=== PATIENT | male | born 1960 ===

== ENCOUNTER 2022-03-23 18:20 | Inpatient (IN) | payer MEDICAID ==
[~2022-03-23] VITALS: Ht 172.7 cm; Wt 97.1 kg
[2022-03-23] MEDS ORDERED: temazepam 15mg capsule PO PRN (21:00)
[2022-03-23] MEDS ORDERED: INDO50CA96 PO (21:50)
[2022-03-23 22:14] VITALS: BP 112/49
[2022-03-23] MEDS ORDERED: HYDROcodone/acetaminophen 5mg/325mg tablet PO PRN (22:40)
[2022-03-23] MEDS ORDERED: potassium Cl 40MEQ/1/2NS 520ml 520 ML IV PRN (22:40)
[2022-03-23] MEDS ORDERED: magnesium Cl slow-release 64mg tablet PO PRN (22:40)
[2022-03-23] MEDS ORDERED: ondansetron/PF 4mg/2ml inj IV PRN (22:40)
[2022-03-23] MEDS ORDERED: magnesium 4gm in 100ml NS 100 ML IV PRN (22:40)
[2022-03-23] MEDS ORDERED: potassium Cl 20 mEq SR tablet PO PRN ×2 (22:40)
[2022-03-23] MEDS ORDERED: acetaminophen 325mg tablet PO PRN ×2 (22:40)
[2022-03-23] MEDS ORDERED: dextrose 50%-water 50ml dispensing syringe IV PRN ×2 (23:00)
[2022-03-23] MEDS ORDERED: MESSAGE TO PHARMACY PO ONE (23:00)
[2022-03-23] MEDS ORDERED: DEXTROSE 15 GM of carb/4 tabs (each vial/BOTTLE has 4 tablets) PO PRN ×2 (23:00)
[2022-03-23] MEDS ORDERED: glucagon, human recombinant 1mg kit SUBCUT PRN (23:00)
[2022-03-23] MEDS ORDERED: vancomycin/NS 1 GM ADD-VANTAGE 250 ML X 1 DOSE IV ONE (23:30)
[2022-03-24] VITALS (30 sets, daily range): BP systolic 128–179; BP diastolic 73–98
[2022-03-24] MEDS: HYDROcodone/acetaminophen 10/325mg tab PO PRN ×3 (00:18→08:02)
[2022-03-24] MEDS: normal saline 1000ml 1,000 ML IV SCH ×3 (00:18→21:49)
[2022-03-24] MEDS: cefepime 1GM/NS ADD-VANTAGE 100 ML IV SCH ×3 (00:18→16:00)
[2022-03-24 05:44] LABS: BASOPHILS % (AUTO) 0.3 % (0-1); EOSINOPHILS # (AUTO) 0.1 X10'3 (0-0.9); EOSINOPHILS % (AUTO) 0.7 % (0-6); HEMATOCRIT 43.1 % (42.0-52.0); HEMOGLOBIN 14.6 g/dl (14.0-17.9); LYMPHOCYTES % (AUTO) 7.9 % (21-51); MEAN CORPUSCULAR HEMOGLOBIN 32.9 PG (27.0-31.0); MEAN CORPUSCULAR HGB CONC 33.8 g/dL (33.0-36.5); MEAN CORPUSCULAR VOLUME 97.3 FL (78-98); MONOCYTES # (AUTO) 1.2 X10'3 (0-0.9); MONOCYTES % (AUTO) 9.4 % (2-12); NEUTROPHILS # (AUTO) 10.2 X10'3 (1.8-7.7); NEUTROPHILS % (AUTO) 81.7 % (42-75); PLATELET COUNT 319 X10'3 (140-440); RED BLOOD COUNT 4.43 X10'6 (4.70-6.10); RED CELL DISTRIBUTION WIDTH 12.7 % (11.5-14.5); WHITE BLOOD COUNT 12.5 X10'3 (4.5-11.0)
[2022-03-24 05:50] LABS: ALANINE AMINOTRANSFERASE 54 U/L (12-78); ALBUMIN 2.1 G/DL (3.4-5.0); ALBUMIN/GLOBULIN RATIO 0.4 (1.1-1.5); ALKALINE PHOSPHATASE 177 IU/L (46-116); ANION GAP 12 (8-16); ASPARTATE AMINO TRANSFERASE 49 U/L (10-37); BILIRUBIN,TOTAL 0.6 MG/DL (0.1-1.0); BLOOD UREA NITROGEN 17 MG/DL (7-18); BUN/CREATININE RATIO 17.5 (5.4-32.0); CALCIUM 8.9 MG/DL (8.5-10.1); CHLORIDE 93 MMOL/L (99-107); CREATININE 0.97 MG/DL (0.60-1.10); GLUCOSE 155 MG/DL (70-104); SODIUM 129 MMOL/L (135-145); TOTAL CARBON DIOXIDE 24.5 MMOL/L (24-32); TOTAL PROTEIN 6.8 G/DL (6.4-8.2); eGFR 78 ML/MIN
[2022-03-24] MEDS: heparin, porcine 5000 units/ml vial SQ SCH ×2 (07:49→21:49)
--- NOTE | 2022-03-24 09:01 | NUR ---
Diabetes consult: Pt w/ hx of DM A1c 9 per EMR. Provided pt w/ written and verbal DM ed w/ RD contact info Addendum: 03/24/22 at [address] Amended: Links added.
[2022-03-24] MEDS: HYDROmorphone 2mg tablet PO PRN ×2 (10:39→21:50)
[2022-03-24] MEDS: vancomycin/NS 1 GM ADD-VANTAGE 250 ML IV SCH (12:54)
[2022-03-24] MEDS ORDERED: BUPIVAcaine 0.5% inj/PF 0 ML ONE (15:11)
[2022-03-24] MEDS ORDERED: vancomycin 1,000mg inj ONE ×2 (15:11→15:57)
[2022-03-24 15:17] LABS: APTT 29 SECONDS (22-32)
[2022-03-24] MEDS ORDERED: morphine 2 MG/ML inj. syringe IV PRN (15:30)
[2022-03-24] MEDS ORDERED: proCHLORperazine 10 MG/2 ml inj IV PRN (15:30)
[2022-03-24] MEDS ORDERED: meperidine/PF 25mg/ml syringe IV PRN ×2 (15:30)
[2022-03-24] MEDS ORDERED: ringers solution, lacted 1,000 ML IV SCH (15:30)
[2022-03-24] MEDS ORDERED: ondansetron/PF 4mg/2ml inj IV PRN (15:30)
[2022-03-24] MEDS ORDERED: morphine 4 MG/ML inj SYRINge IV PRN (15:30)
[2022-03-24] MEDS ORDERED: sevoflurane 250ml liquid IH ONE (15:36)
--- NOTE | 2022-03-24 15:39 | NUR ---
TAKEN TO OR, REPORT GIVEN
[2022-03-24] MEDS ORDERED: fentaNYL /PF 50mcg/ml 5ml ampule ONE (15:40)
[2022-03-24] MEDS ORDERED: propofol inj 20 ML IV ONE (15:41)
--- NOTE | 2022-03-24 16:21 | NUR ---
Received from OR via HOSPITAL BED, accompanied by Anesthesiologist DR NGUYEN and report given by Anesthesiolgist. PT PRESENTS WITH PIV 20G LEFT FOREARM, RIGHT HAND DRESSING CDI, VSS. Addendum: 03/24/22 at 1658 by Angela Graham RN, RN Amended: Links added.
[2022-03-24] MEDS: meperidine/PF 25mg/ml syringe IV PRN ×3 (16:29→18:24)
[2022-03-24] MEDS ORDERED: HYDROmorphone/PF 0.2 MG/ML SYRINGE IV PRN (16:50)
[2022-03-24] MEDS: HYDROmorphone/PF 0.2 MG/ML SYRINGE IV PRN ×5 (16:58→17:59)
--- NOTE | 2022-03-24 17:15 | NUR ---
PT CO PAIN 8/10 ON RIGHT WRIST, 3 PIILOWS PLACED UNDER PT WRIST WITH ICE PACKS PLACED ON LATERAL AND MEDIAL WRIST.
--- NOTE | 2022-03-24 19:01 | NUR ---
Report called to receiving nurse GALO HUITRON. Transferred via HOSITAL BED TO ROOM 360B. BED IN LOW LOCKED POSITION, CALL LIGHT IN REACH. PT LEFT Belongings IN ROOM 360B. PT'S CHART TAKEN TO NURSES STATION. Special Issues communicated to receiving nurse. Addendum: 03/24/22 at 1914 by Angela Graham RN RN Amended: Links added.
--- NOTE | 2022-03-24 19:34 | NUR ---
Patient in room [facility]. I have received report from karen avitia and had the opportunity to ask questions and assume patient care.
[2022-03-24] MEDS: insulin glargine (Lantus) pen - multi-dose SQ SCH (21:00)
[2022-03-25] MEDS: cefepime 1GM/NS ADD-VANTAGE 100 ML IV SCH ×3 (00:06→16:12)
[2022-03-25] MEDS: HYDROcodone/acetaminophen 10/325mg tab PO PRN ×3 (00:22→22:10)
--- NOTE | 2022-03-25 00:52 | NUR ---
pt elevated BP is pain related and it is being controlled with pain meds. it is high and then goes down with pain meds being administered. i discussed with charge nurse, she is aware, and she advised we pass this on to the day nurse to address this in the AM with dr kamara. we are just trying to keep up on his pain meds appropriately. pt does not have a hospitalist just surgeon.
[2022-03-25] MEDS: vancomycin/NS 1 GM ADD-VANTAGE 250 ML IV SCH ×2 (01:05→12:17)
--- NOTE | 2022-03-25 02:54 | NUR ---
Problems reprioritized. Patient report given, questions answered & plan of care reviewed with mirella avitia.
[2022-03-25] MEDS: normal saline 1000ml 1,000 ML IV SCH ×2 (04:40→12:14)
[2022-03-25 06:00] VITALS: BP 196/96
--- NOTE | 2022-03-25 06:56 | NUR ---
Assumed care of patient at 0300. Have check on patient multiple times always sleeping appears comfortable.
[2022-03-25 07:03] LABS: BASOPHILS % (AUTO) 0.4 % (0-1); EOSINOPHILS # (AUTO) 0.1 X10'3 (0-0.9); EOSINOPHILS % (AUTO) 0.8 % (0-6); HEMATOCRIT 42.1 % (42.0-52.0); LYMPHOCYTES # (AUTO) 0.9 X10'3 (1.1-4.8); LYMPHOCYTES % (AUTO) 7.6 % (21-51); MEAN CORPUSCULAR HEMOGLOBIN 32.5 PG (27.0-31.0); MEAN CORPUSCULAR HGB CONC 33.3 g/dL (33.0-36.5); MEAN CORPUSCULAR VOLUME 97.6 FL (78-98); MEAN PLATELET VOLUME 7.6 FL (7.4-10.4); MONOCYTES # (AUTO) 1.1 X10'3 (0-0.9); MONOCYTES % (AUTO) 9.1 % (2-12); NEUTROPHILS % (AUTO) 82.1 % (42-75); PLATELET COUNT 349 X10'3 (140-440); RED BLOOD COUNT 4.32 X10'6 (4.70-6.10); RED CELL DISTRIBUTION WIDTH 12.7 % (11.5-14.5); WHITE BLOOD COUNT 12.2 X10'3 (4.5-11.0)
--- NOTE | 2022-03-25 07:24 | NUR ---
Had patient yesterday prior to I&D, Rhina SOARES assumed care of patient at 0300. I am assigned to patient today. Rhina SOARES left with no report given to me. Addendum: 03/25/22 at 0732 by Juice Chavez RN received 0600 VS sheet, BP charted as 196/96, will recheck and treat appropriately. no communication with prior nurse re blood pressures as report was given.
[2022-03-25 07:26] LABS: ANION GAP 9 (8-16); BILIRUBIN,TOTAL 0.5 MG/DL (0.1-1.0); BLOOD UREA NITROGEN 16 MG/DL (7-18); BUN/CREATININE RATIO 19.8 (5.4-32.0); CALCIUM 9.1 MG/DL (8.5-10.1); CHLORIDE 97 MMOL/L (99-107); CREATININE 0.81 MG/DL (0.60-1.10); GLUCOSE 143 MG/DL (70-104); SODIUM 132 MMOL/L (135-145); TOTAL CARBON DIOXIDE 25.7 MMOL/L (24-32); TOTAL PROTEIN 6.6 G/DL (6.4-8.2); eGFR > 90 ML/MIN
[2022-03-25 07:27] LABS: ALANINE AMINOTRANSFERASE 51 U/L (12-78); ALBUMIN 2.1 G/DL (3.4-5.0); ALBUMIN/GLOBULIN RATIO 0.5 (1.1-1.5); ALKALINE PHOSPHATASE 174 IU/L (46-116); ASPARTATE AMINO TRANSFERASE 45 U/L (10-37)
[2022-03-25 07:53] VITALS: BP 176/101
--- NOTE | 2022-03-25 07:58 | NUR ---
promotional table spacer promotional table spacer Page Sent promotional table spacer PAGER ID: [phone] MESSAGE: re Austintorri Arnoldo Rm 360B BP was 196/96 hr 82 @0600. Reassessed, currently 176/101 hr 83. no BP meds ordered. please advise Asad HUITRON
[2022-03-25] MEDS: heparin, porcine 5000 units/ml vial SQ SCH ×2 (08:14→22:13)
[2022-03-25] MEDS: HYDROmorphone 2mg tablet PO PRN ×2 (08:14→16:12)
[2022-03-25 08:54] LABS: C-REACTIVE PROTEIN 23.51 MG/DL (0.0-0.5)
[2022-03-25 10:00] VITALS: BP 175/87
[2022-03-25] MEDS: hydrALAZINE 20mg/ml inj. IV PRN (11:13)
[2022-03-25] MEDS ORDERED: VANCOMYCIN LEVEL IV ONE (11:30)
[2022-03-25 18:00] VITALS: BP 155/84
--- NOTE | 2022-03-25 18:33 | NUR ---
Patient in room [facility]. I have received report from Asad HUITRON and had the opportunity to ask questions and assume patient care.
[2022-03-25] MEDS: insulin glargine (Lantus) pen - multi-dose SQ SCH (21:00)
[2022-03-25 22:00] VITALS: BP 193/97
[2022-03-26] MEDS: normal saline 1000ml 1,000 ML IV SCH ×3 (00:32→20:37)
[2022-03-26] MEDS: cefepime 1GM/NS ADD-VANTAGE 100 ML IV SCH ×3 (00:34→16:25)
[2022-03-26] MEDS: VANCOmycin 1250MG/NS 250ml Bag 250 ML IV SCH ×3 (02:48→23:47)
[2022-03-26] MEDS: HYDROcodone/acetaminophen 10/325mg tab PO PRN ×4 (02:55→20:37)
[2022-03-26 06:00] VITALS: BP 161/87
--- NOTE | 2022-03-26 06:51 | NUR ---
Patient in room [facility]. I have received report from Candi and had the opportunity to ask questions and assume patient care.
--- NOTE | 2022-03-26 06:55 | NUR ---
Problems reprioritized. Patient report given, questions answered & plan of care reviewed with Denisa HUITRON.
[2022-03-26 07:14] LABS: BASOPHILS # (AUTO) 0.1 X10'3 (0-0.2); BASOPHILS % (AUTO) 0.6 % (0-1); EOSINOPHILS # (AUTO) 0.3 X10'3 (0-0.9); EOSINOPHILS % (AUTO) 2.4 % (0-6); HEMATOCRIT 40.7 % (42.0-52.0); HEMOGLOBIN 14.1 g/dl (14.0-17.9); LYMPHOCYTES # (AUTO) 1.2 X10'3 (1.1-4.8); LYMPHOCYTES % (AUTO) 11.3 % (21-51); MEAN CORPUSCULAR HEMOGLOBIN 33.5 PG (27.0-31.0); MEAN CORPUSCULAR HGB CONC 34.5 g/dL (33.0-36.5); MEAN CORPUSCULAR VOLUME 97.1 FL (78-98); MEAN PLATELET VOLUME 7.5 FL (7.4-10.4); MONOCYTES # (AUTO) 0.8 X10'3 (0-0.9); MONOCYTES % (AUTO) 7.5 % (2-12); NEUTROPHILS # (AUTO) 8.2 X10'3 (1.8-7.7); NEUTROPHILS % (AUTO) 78.2 % (42-75); PLATELET COUNT 365 X10'3 (140-440); RED CELL DISTRIBUTION WIDTH 12.7 % (11.5-14.5); WHITE BLOOD COUNT 10.5 X10'3 (4.5-11.0)
[2022-03-26 07:30] LABS: PLATELET ESTIMATE NORMAL; TOTAL CELLS COUNTED 100
[2022-03-26 07:31] LABS: ALANINE AMINOTRANSFERASE 65 U/L (12-78); ALBUMIN 1.9 G/DL (3.4-5.0); ALBUMIN/GLOBULIN RATIO 0.5 (1.1-1.5); ALKALINE PHOSPHATASE 155 IU/L (46-116); ANION GAP 6 (8-16); ASPARTATE AMINO TRANSFERASE 47 U/L (10-37); BILIRUBIN,TOTAL 0.4 MG/DL (0.1-1.0); BLOOD UREA NITROGEN 13 MG/DL (7-18); BUN/CREATININE RATIO 17.6 (5.4-32.0); C-REACTIVE PROTEIN 16.72 MG/DL (0.0-0.5); CALCIUM 8.6 MG/DL (8.5-10.1); CHLORIDE 100 MMOL/L (99-107); CREATININE 0.74 MG/DL (0.60-1.10); GLUCOSE 138 MG/DL (70-104); POTASSIUM 3.7 MMOL/L (3.5-5.1); SODIUM 133 MMOL/L (135-145); TOTAL CARBON DIOXIDE 26.6 MMOL/L (24-32); TOTAL PROTEIN 6.1 G/DL (6.4-8.2); eGFR > 90 ML/MIN
[2022-03-26] MEDS: heparin, porcine 5000 units/ml vial SQ SCH ×2 (09:19→20:36)
[2022-03-26] MEDS: nicotine 21mg patch - 24 hr TD SCH (09:19)
[2022-03-26 10:00] VITALS: BP 190/85
--- NOTE | 2022-03-26 15:24 | NUR ---
PAGER ID: [phone] MESSAGE: Ruthie Mclaughlin in 360B is c/o pain in his left ankle that is getting increasingly worse. Red and edema starting. Says its feels like gout flare up. -Breanne [phone]
[2022-03-26] MEDS: hydrALAZINE 20mg/ml inj. IV PRN (16:30)
[2022-03-26] MEDS: indomethacin 25mg capsule PO SCH (17:26)
--- NOTE | 2022-03-26 17:39 | NUR ---
Pt's POA is daughter Sharonda Mclaughlin.
[2022-03-26 18:00] VITALS: BP 172/96
--- NOTE | 2022-03-26 18:15 | NUR ---
Problems reprioritized. Patient report given, questions answered & plan of care reviewed with TOMY Raymundo.
--- NOTE | 2022-03-26 18:15 | NUR ---
Problems reprioritized. Patient report given, questions answered & plan of care reviewed with Bindu.
[2022-03-26] MEDS: insulin glargine (Lantus) pen - multi-dose SQ SCH (21:00)
[2022-03-26 22:00] VITALS: BP 171/81
[2022-03-27 00:29] VITALS: BP 161/89
[2022-03-27] MEDS: hydrALAZINE 20mg/ml inj. IV PRN ×2 (00:32→05:57)
[2022-03-27] MEDS: HYDROcodone/acetaminophen 10/325mg tab PO PRN ×5 (02:07→22:49)
[2022-03-27 04:29] LABS: ALANINE AMINOTRANSFERASE 61 U/L (12-78); ALBUMIN 1.9 G/DL (3.4-5.0); ALBUMIN/GLOBULIN RATIO 0.4 (1.1-1.5); ALKALINE PHOSPHATASE 141 IU/L (46-116); ANION GAP 9 (8-16); ASPARTATE AMINO TRANSFERASE 34 U/L (10-37); BASOPHILS # (AUTO) 0.1 X10'3 (0-0.2); BASOPHILS % (AUTO) 0.7 % (0-1); BILIRUBIN,TOTAL 0.4 MG/DL (0.1-1.0); BLOOD UREA NITROGEN 10 MG/DL (7-18); BUN/CREATININE RATIO 14.1 (5.4-32.0); CHLORIDE 100 MMOL/L (99-107); CREATININE 0.71 MG/DL (0.60-1.10); EOSINOPHILS # (AUTO) 0.2 X10'3 (0-0.9); EOSINOPHILS % (AUTO) 2.2 % (0-6); GLUCOSE 137 MG/DL (70-104); HEMATOCRIT 41.3 % (42.0-52.0); HEMOGLOBIN 14.2 g/dl (14.0-17.9); LYMPHOCYTES # (AUTO) 1.1 X10'3 (1.1-4.8); LYMPHOCYTES % (AUTO) 12.5 % (21-51); MEAN CORPUSCULAR HEMOGLOBIN 33.2 PG (27.0-31.0); MEAN CORPUSCULAR HGB CONC 34.4 g/dL (33.0-36.5); MEAN CORPUSCULAR VOLUME 96.6 FL (78-98); MEAN PLATELET VOLUME 7.8 FL (7.4-10.4); MONOCYTES # (AUTO) 0.7 X10'3 (0-0.9); NEUTROPHILS # (AUTO) 6.5 X10'3 (1.8-7.7); NEUTROPHILS % (AUTO) 76.6 % (42-75); PLATELET COUNT 415 X10'3 (140-440); POTASSIUM 3.5 MMOL/L (3.5-5.1); RED BLOOD COUNT 4.27 X10'6 (4.70-6.10); RED CELL DISTRIBUTION WIDTH 12.6 % (11.5-14.5); SODIUM 136 MMOL/L (135-145); TOTAL CARBON DIOXIDE 26.9 MMOL/L (24-32); TOTAL PROTEIN 6.2 G/DL (6.4-8.2); WHITE BLOOD COUNT 8.5 X10'3 (4.5-11.0); eGFR > 90 ML/MIN
[2022-03-27 06:00] VITALS: BP 184/92
--- NOTE | 2022-03-27 06:13 | NUR ---
Problems reprioritized. Patient report given, questions answered & plan of care reviewed with TOMY Raymundo.
--- NOTE | 2022-03-27 06:36 | NUR ---
Patient in room [facility]. I have received report from Bindu and had the opportunity to ask questions and assume patient care.
--- NOTE | 2022-03-27 07:55 | NUR ---
PAGER ID: [phone] MESSAGE: Ruthie Mclaughlin in 360B - BP consistently above 160 despite giving hydralazine q6. -Breanne [phone]
[2022-03-27] MEDS ORDERED: NIFEdipine XL 30mg tablet PO ONE (08:00)
[2022-03-27] MEDS: CefTRIAXone 2gm/D5W 50ml BAG 50 ML IV SCH (08:02)
[2022-03-27] MEDS: nicotine 21mg patch - 24 hr TD SCH (08:02)
[2022-03-27] MEDS: heparin, porcine 5000 units/ml vial SQ SCH ×2 (08:03→20:18)
[2022-03-27] MEDS: indomethacin 25mg capsule PO SCH ×3 (09:02→17:35)
[2022-03-27 10:00] VITALS: BP 151/75
[2022-03-27] MEDS ORDERED: VANCOMYCIN LEVEL IV ONE (11:30)
[2022-03-27] MEDS: VANCOMYCIN 1,500MG in normal saline IV soln 300 ML IV SCH ×2 (12:12→22:52)
[2022-03-27 18:00] VITALS: BP 153/80
--- NOTE | 2022-03-27 18:00 | NUR ---
Patient in room [facility]. I have received report from TOMY Raymundo and had the opportunity to ask questions and assume patient care.
[2022-03-27] MEDS: insulin Lispro (HumaLOG) vial - multi-dose SQ SCH (18:44)
[2022-03-27] MEDS: docusate sod 100mg capsule PO SCH (20:00)
[2022-03-27] MEDS: insulin glargine (Lantus) pen - multi-dose SQ SCH (21:00)
[2022-03-27 22:00] VITALS: BP 156/79
[2022-03-28] MEDS: HYDROcodone/acetaminophen 10/325mg tab PO PRN (04:31)
[2022-03-28 05:46] LABS: BASOPHILS # (AUTO) 0.1 X10'3 (0-0.2); BASOPHILS % (AUTO) 0.7 % (0-1); EOSINOPHILS # (AUTO) 0.2 X10'3 (0-0.9); EOSINOPHILS % (AUTO) 2.3 % (0-6); HEMATOCRIT 42.3 % (42.0-52.0); HEMOGLOBIN 14.3 g/dl (14.0-17.9); LYMPHOCYTES # (AUTO) 1.1 X10'3 (1.1-4.8); LYMPHOCYTES % (AUTO) 14.2 % (21-51); MEAN CORPUSCULAR HEMOGLOBIN 32.7 PG (27.0-31.0); MEAN CORPUSCULAR HGB CONC 33.8 g/dL (33.0-36.5); MEAN CORPUSCULAR VOLUME 96.7 FL (78-98); MEAN PLATELET VOLUME 7.6 FL (7.4-10.4); MONOCYTES # (AUTO) 0.6 X10'3 (0-0.9); MONOCYTES % (AUTO) 7.2 % (2-12); NEUTROPHILS # (AUTO) 6.1 X10'3 (1.8-7.7); NEUTROPHILS % (AUTO) 75.6 % (42-75); PLATELET COUNT 456 X10'3 (140-440); RED BLOOD COUNT 4.37 X10'6 (4.70-6.10); RED CELL DISTRIBUTION WIDTH 12.6 % (11.5-14.5)
[2022-03-28 06:00] VITALS: BP 162/87
--- NOTE | 2022-03-28 06:25 | NUR ---
Patient in room [facility]. I have received report from AIRAM Hathaway and had the opportunity to ask questions and assume patient care.
[2022-03-28 06:26] LABS: ALANINE AMINOTRANSFERASE 53 U/L (12-78); ALBUMIN/GLOBULIN RATIO 0.5 (1.1-1.5); ALKALINE PHOSPHATASE 126 IU/L (46-116); ANION GAP 9 (8-16); ASPARTATE AMINO TRANSFERASE 28 U/L (10-37); BILIRUBIN,TOTAL 0.3 MG/DL (0.1-1.0); BLOOD UREA NITROGEN 13 MG/DL (7-18); BUN/CREATININE RATIO 18.3 (5.4-32.0); CALCIUM 8.8 MG/DL (8.5-10.1); CHLORIDE 99 MMOL/L (99-107); CREATININE 0.71 MG/DL (0.60-1.10); GLUCOSE 133 MG/DL (70-104); POTASSIUM 3.4 MMOL/L (3.5-5.1); SODIUM 134 MMOL/L (135-145); TOTAL PROTEIN 6.3 G/DL (6.4-8.2); eGFR > 90 ML/MIN
[2022-03-28] MEDS: CefTRIAXone 2gm/D5W 50ml BAG 50 ML IV SCH (08:08)
[2022-03-28] MEDS: NIFEdipine XL 30mg tablet PO SCH (09:25)
[2022-03-28] MEDS: docusate sod 100mg capsule PO SCH ×2 (09:25→20:00)
[2022-03-28] MEDS: indomethacin 25mg capsule PO SCH ×3 (09:25→17:30)
[2022-03-28] MEDS: nicotine 21mg patch - 24 hr TD SCH (09:26)
[2022-03-28] MEDS: heparin, porcine 5000 units/ml vial SQ SCH ×2 (09:26→21:13)
[2022-03-28] MEDS: insulin Lispro (HumaLOG) vial - multi-dose SQ SCH ×3 (09:27→18:51)
[2022-03-28] MEDS: VANCOMYCIN 1,500MG in normal saline IV soln 300 ML IV SCH (12:43)
[2022-03-28 18:00] VITALS: BP 149/84
--- NOTE | 2022-03-28 18:08 | NUR ---
WEATHER FORCASTER documentation: I have reviewed and agree with all interventions, assessments performed and documented by Mag Gonzalez LVN.
--- NOTE | 2022-03-28 18:23 | NUR ---
Problems reprioritized. Patient report given, questions answered & plan of care reviewed with Nora HUITRON.
[2022-03-28] MEDS: insulin glargine (Lantus) pen - multi-dose SQ SCH (21:11)
[2022-03-28 22:00] VITALS: BP 156/79
[2022-03-28] MEDS ORDERED: VANCOMYCIN LEVEL IV ONE (23:30)
[2022-03-29] MEDS: HYDROcodone/acetaminophen 10/325mg tab PO PRN ×3 (04:42→20:45)
[2022-03-29 06:00] VITALS: BP 163/89
--- NOTE | 2022-03-29 06:49 | NUR ---
Problems reprioritized. Patient report given, questions answered & plan of care reviewed with TOMY LANGLEY.
--- NOTE | 2022-03-29 06:50 | NUR ---
Patient in room [facility]. I have received report from TIM HUITRON and had the opportunity to ask questions and assume patient care.
[2022-03-29] MEDS: heparin, porcine 5000 units/ml vial SQ SCH ×2 (08:00→20:44)
[2022-03-29] MEDS: CefTRIAXone 2gm/D5W 50ml BAG 50 ML IV SCH (08:25)
[2022-03-29] MEDS: NIFEdipine XL 30mg tablet PO SCH (08:25)
[2022-03-29] MEDS: docusate sod 100mg capsule PO SCH ×2 (08:26→20:00)
[2022-03-29] MEDS: nicotine 21mg patch - 24 hr TD SCH (08:26)
[2022-03-29] MEDS: indomethacin 25mg capsule PO SCH ×2 (08:36→12:30)
--- NOTE | 2022-03-29 08:38 | NUR ---
PT REFUSED HIS INSULIN, HE WAS A BS OF 128, HE ONLY ATE A MUFFIN AND DIDN'T FEEL HE NEEDED INSULIN OF 3 UNITS. HE WANTS TO REEVALUATE AT LUNCH TIME. WILL NOTIFY DOCTOR DURING ROUNDING.
[2022-03-29 08:56] LABS: ALANINE AMINOTRANSFERASE 49 U/L (12-78); ALBUMIN 2.2 G/DL (3.4-5.0); ALBUMIN/GLOBULIN RATIO 0.5 (1.1-1.5); ALKALINE PHOSPHATASE 116 IU/L (46-116); ANION GAP 9 (8-16); ASPARTATE AMINO TRANSFERASE 26 U/L (10-37); BILIRUBIN,TOTAL 0.4 MG/DL (0.1-1.0); BLOOD UREA NITROGEN 16 MG/DL (7-18); BUN/CREATININE RATIO 18.6 (5.4-32.0); CALCIUM 9.2 MG/DL (8.5-10.1); CHLORIDE 101 MMOL/L (99-107); CREATININE 0.86 MG/DL (0.60-1.10); GLUCOSE 133 MG/DL (70-104); POTASSIUM 3.8 MMOL/L (3.5-5.1); SODIUM 136 MMOL/L (135-145); TOTAL CARBON DIOXIDE 25.9 MMOL/L (24-32); TOTAL PROTEIN 6.5 G/DL (6.4-8.2); eGFR 90 ML/MIN
[2022-03-29 08:57] LABS: BASOPHILS # (AUTO) 0.1 X10'3 (0-0.2); BASOPHILS % (AUTO) 0.7 % (0-1); EOSINOPHILS # (AUTO) 0.1 X10'3 (0-0.9); EOSINOPHILS % (AUTO) 1.4 % (0-6); HEMATOCRIT 42.2 % (42.0-52.0); HEMOGLOBIN 14.5 g/dl (14.0-17.9); LYMPHOCYTES # (AUTO) 1.1 X10'3 (1.1-4.8); LYMPHOCYTES % (AUTO) 12.8 % (21-51); MEAN CORPUSCULAR HEMOGLOBIN 33.3 PG (27.0-31.0); MEAN CORPUSCULAR HGB CONC 34.4 g/dL (33.0-36.5); MEAN CORPUSCULAR VOLUME 96.7 FL (78-98); MEAN PLATELET VOLUME 7.4 FL (7.4-10.4); MONOCYTES # (AUTO) 0.6 X10'3 (0-0.9); NEUTROPHILS # (AUTO) 6.9 X10'3 (1.8-7.7); NEUTROPHILS % (AUTO) 78.1 % (42-75); PLATELET COUNT 463 X10'3 (140-440); RED BLOOD COUNT 4.36 X10'6 (4.70-6.10); RED CELL DISTRIBUTION WIDTH 12.9 % (11.5-14.5); WHITE BLOOD COUNT 8.8 X10'3 (4.5-11.0)
[2022-03-29 10:52] VITALS: BP 140/79
--- NOTE | 2022-03-29 13:26 | NUR ---
BARBARA TO LOCATE PTS GHANSHYAMO. CALLED PHARMACY
[2022-03-29] MEDS: VANCOMYCIN 1,500MG in normal saline IV soln 300 ML IV SCH ×3 (13:38)
[2022-03-29] MEDS: insulin Lispro (HumaLOG) vial - multi-dose SQ SCH ×2 (13:44→18:48)
--- NOTE | 2022-03-29 13:49 | NUR ---
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 Pt currently POD #5 s/p I&D or right wrist. Currently on a CHO controlled diet and overall eating well, documented with average 70% PO intake since lunch 03/25 meeting 73% estimated energy needs and 90% estimated protein needs. Recommend Glucerna BID to assist with meeting estimated nutrient needs, to be sent pending physician approval in EMR. LBM 03/28, receiving routine bowel care. Will continue to follow and monitor need for further nutrition intervention. Recommendations: 1) Continue CHO controlled diet 2) Glucerna BIDBD, pending physician approval in EMR 3) Routine bowel care 4) Weekly scaled weights Addendum: 03/29/22 at [address] Amended: Links added.
[2022-03-29] MEDS: NUT.TX.GLUC.INTOLER,LAC-FR,SOY (GLUCERNA) 237 ML PO SCH (17:30)
[2022-03-29 18:00] VITALS: BP 142/79
--- NOTE | 2022-03-29 18:09 | NUR ---
Problems reprioritized. Patient report given, questions answered & plan of care reviewed with robby avitia.
[2022-03-29] MEDS: insulin glargine (Lantus) pen - multi-dose SQ SCH (20:47)
[2022-03-29 22:00] VITALS: BP 149/90
[2022-03-30] MEDS: VANCOMYCIN 1,500MG in normal saline IV soln 300 ML IV SCH ×3 (00:11→23:23)
[2022-03-30] MEDS: HYDROcodone/acetaminophen 10/325mg tab PO PRN ×5 (03:13→23:23)
[2022-03-30 06:00] VITALS: BP 168/91
--- NOTE | 2022-03-30 06:17 | NUR ---
Problems reprioritized. Patient report given, questions answered & plan of care reviewed with TOMY LANGLEY.
[2022-03-30 06:38] LABS: BASOPHILS # (AUTO) 0.1 X10'3 (0-0.2); BASOPHILS % (AUTO) 0.9 % (0-1); EOSINOPHILS # (AUTO) 0.1 X10'3 (0-0.9); EOSINOPHILS % (AUTO) 1.3 % (0-6); HEMATOCRIT 42.1 % (42.0-52.0); HEMOGLOBIN 14.6 g/dl (14.0-17.9); LYMPHOCYTES # (AUTO) 1.3 X10'3 (1.1-4.8); LYMPHOCYTES % (AUTO) 16.4 % (21-51); MEAN CORPUSCULAR HEMOGLOBIN 33.3 PG (27.0-31.0); MEAN CORPUSCULAR HGB CONC 34.6 g/dL (33.0-36.5); MEAN CORPUSCULAR VOLUME 96.2 FL (78-98); MEAN PLATELET VOLUME 7.5 FL (7.4-10.4); MONOCYTES # (AUTO) 0.5 X10'3 (0-0.9); MONOCYTES % (AUTO) 6.6 % (2-12); NEUTROPHILS # (AUTO) 5.8 X10'3 (1.8-7.7); NEUTROPHILS % (AUTO) 74.8 % (42-75); PLATELET COUNT 498 X10'3 (140-440); RED BLOOD COUNT 4.38 X10'6 (4.70-6.10); RED CELL DISTRIBUTION WIDTH 12.8 % (11.5-14.5); WHITE BLOOD COUNT 7.7 X10'3 (4.5-11.0)
--- NOTE | 2022-03-30 06:48 | NUR ---
Patient in room [facility]. I have received report from TIM HUITRON and had the opportunity to ask questions and assume patient care.
[2022-03-30 06:57] LABS: ALANINE AMINOTRANSFERASE 41 U/L (12-78); ALBUMIN 2.3 G/DL (3.4-5.0); ALBUMIN/GLOBULIN RATIO 0.5 (1.1-1.5); ALKALINE PHOSPHATASE 115 IU/L (46-116); ANION GAP 7 (8-16); ASPARTATE AMINO TRANSFERASE 24 U/L (10-37); BILIRUBIN,TOTAL 0.5 MG/DL (0.1-1.0); BLOOD UREA NITROGEN 18 MG/DL (7-18); C-REACTIVE PROTEIN 6.91 MG/DL (0.0-0.5); CALCIUM 9.1 MG/DL (8.5-10.1); CHLORIDE 101 MMOL/L (99-107); GLUCOSE 112 MG/DL (70-104); POTASSIUM 3.8 MMOL/L (3.5-5.1); SODIUM 136 MMOL/L (135-145); TOTAL CARBON DIOXIDE 28.5 MMOL/L (24-32); TOTAL PROTEIN 6.7 G/DL (6.4-8.2); eGFR 85 ML/MIN
[2022-03-30] MEDS: NUT.TX.GLUC.INTOLER,LAC-FR,SOY (GLUCERNA) 237 ML PO SCH ×2 (07:30→17:30)
[2022-03-30] MEDS: docusate sod 100mg capsule PO SCH ×2 (08:00→20:00)
[2022-03-30] MEDS: CefTRIAXone 2gm/D5W 50ml BAG 50 ML IV SCH (08:00)
[2022-03-30] MEDS: NIFEdipine XL 30mg tablet PO SCH (08:00)
[2022-03-30] MEDS: heparin, porcine 5000 units/ml vial SQ SCH ×2 (08:00→20:00)
[2022-03-30] MEDS: nicotine 21mg patch - 24 hr TD SCH (08:02)
--- NOTE | 2022-03-30 08:24 | NUR ---
PT REFUSED HIS INSULIN FOR HIS MEAL THIS AM, HE ALSO REFUSED HIS ANTIBIOTIC BECAUSE HE DIDN'T WANT ANOTHER ANTIBIOTIC. HE WAS VERY AGITATED ABOUT GETTING HIS PICC LINE NOW. I MADE THE DR AWARE OF HIS REFUSAL OF INSULIN AND MEDICATIONS. Addendum: 03/30/22 at 1032 by Lian Delatorre RN PT REFUSED HIS INSULIN FOR HIS MEAL THIS AM, HE ALSO REFUSED HIS ANTIBIOTIC BECAUSE HE DIDN'T WANT ANOTHER IV. HE WAS VERY AGITATED ABOUT GETTING HIS PICC LINE NOW. I MADE THE DR AWARE OF HIS REFUSAL OF INSULIN AND MEDICATIONS.
[2022-03-30 11:22] VITALS: BP 143/85
--- NOTE | 2022-03-30 12:54 | NUR ---
PT REFUSED BLOOD SUGAR CHECKS, STATES HE IS TIRED OF BEING POKED. JUST WANTS THE MEDICATIONS HE NEEDS WHILE HERE. IS AWARE.
[2022-03-30 18:00] VITALS: BP 175/92
--- NOTE | 2022-03-30 18:18 | NUR ---
Problems reprioritized. Patient report given, questions answered & plan of care reviewed with robby avitia.
[2022-03-30] MEDS: insulin glargine (Lantus) pen - multi-dose SQ SCH (20:36)
[2022-03-30 22:30] VITALS: BP 175/80
[2022-03-30] MEDS: hydrALAZINE 20mg/ml inj. IV PRN (23:23)
[2022-03-31 01:33] VITALS: BP 153/95
[2022-03-31] MEDS: HYDROcodone/acetaminophen 10/325mg tab PO PRN ×4 (05:21→23:38)
--- NOTE | 2022-03-31 06:25 | NUR ---
Problems reprioritized. Patient report given, questions answered & plan of care reviewed with TOMY GAMBINO.
[2022-03-31 06:42] LABS: BASOPHILS # (AUTO) 0.1 X10'3 (0-0.2); BASOPHILS % (AUTO) 1.1 % (0-1); EOSINOPHILS # (AUTO) 0.1 X10'3 (0-0.9); EOSINOPHILS % (AUTO) 1.6 % (0-6); HEMATOCRIT 41.7 % (42.0-52.0); HEMOGLOBIN 14.1 g/dl (14.0-17.9); LYMPHOCYTES # (AUTO) 1.1 X10'3 (1.1-4.8); LYMPHOCYTES % (AUTO) 16.2 % (21-51); MEAN CORPUSCULAR HEMOGLOBIN 33.1 PG (27.0-31.0); MEAN CORPUSCULAR HGB CONC 33.9 g/dL (33.0-36.5); MEAN CORPUSCULAR VOLUME 97.7 FL (78-98); MEAN PLATELET VOLUME 7.5 FL (7.4-10.4); MONOCYTES # (AUTO) 0.6 X10'3 (0-0.9); MONOCYTES % (AUTO) 9.4 % (2-12); NEUTROPHILS # (AUTO) 4.8 X10'3 (1.8-7.7); NEUTROPHILS % (AUTO) 71.7 % (42-75); PLATELET COUNT 452 X10'3 (140-440); RED BLOOD COUNT 4.27 X10'6 (4.70-6.10); RED CELL DISTRIBUTION WIDTH 12.7 % (11.5-14.5); WHITE BLOOD COUNT 6.7 X10'3 (4.5-11.0)
[2022-03-31 06:55] VITALS: BP 170/78
--- NOTE | 2022-03-31 06:58 | NUR ---
Patient in room [facility]. I have received report from robby avitia and had the opportunity to ask questions and assume patient care.
[2022-03-31 07:10] LABS: ALANINE AMINOTRANSFERASE 38 U/L (12-78); ALBUMIN 2.3 G/DL (3.4-5.0); ALBUMIN/GLOBULIN RATIO 0.5 (1.1-1.5); ALKALINE PHOSPHATASE 105 IU/L (46-116); ANION GAP 4 (8-16); ASPARTATE AMINO TRANSFERASE 26 U/L (10-37); BILIRUBIN,TOTAL 0.4 MG/DL (0.1-1.0); BLOOD UREA NITROGEN 18 MG/DL (7-18); BUN/CREATININE RATIO 18.8 (5.4-32.0); CHLORIDE 100 MMOL/L (99-107); CREATININE 0.96 MG/DL (0.60-1.10); GLUCOSE 132 MG/DL (70-104); POTASSIUM 3.9 MMOL/L (3.5-5.1); SODIUM 134 MMOL/L (135-145); TOTAL CARBON DIOXIDE 29.6 MMOL/L (24-32); TOTAL PROTEIN 6.6 G/DL (6.4-8.2); eGFR 79 ML/MIN
[2022-03-31] MEDS: NUT.TX.GLUC.INTOLER,LAC-FR,SOY (GLUCERNA) 237 ML PO SCH ×2 (07:30→17:30)
[2022-03-31] MEDS: heparin, porcine 5000 units/ml vial SQ SCH ×2 (08:00→20:24)
[2022-03-31] MEDS: docusate sod 100mg capsule PO SCH ×2 (08:00→20:00)
[2022-03-31] MEDS: NIFEdipine XL 30mg tablet PO SCH (08:45)
[2022-03-31] MEDS: CefTRIAXone 2gm/D5W 50ml BAG 50 ML IV SCH (08:45)
[2022-03-31] MEDS: nicotine 21mg patch - 24 hr TD SCH (08:46)
[2022-03-31 10:45] VITALS: BP 161/83
[2022-03-31] MEDS: VANCOMYCIN 1,500MG in normal saline IV soln 300 ML IV SCH ×2 (12:38→23:38)
[2022-03-31 18:00] VITALS: BP 166/83
--- NOTE | 2022-03-31 18:31 | NUR ---
Problems reprioritized. Patient report given, questions answered & plan of care reviewed with PRUDENCE RN.
--- NOTE | 2022-03-31 19:00 | NUR ---
Patient in room [facility]. I have received report from MAKI HUITRON and had the opportunity to ask questions and assume patient care.
[2022-03-31] MEDS: insulin glargine (Lantus) pen - multi-dose SQ SCH (21:46)
[2022-03-31 23:48] VITALS: BP 142/81
[2022-04-01] MEDS: HYDROcodone/acetaminophen 10/325mg tab PO PRN ×2 (05:01→09:54)
--- NOTE | 2022-04-01 06:16 | NUR ---
Problems reprioritized. Patient report given, questions answered & plan of care reviewed with ARLETTE ALEGRIA.
--- NOTE | 2022-04-01 06:27 | NUR ---
Patient in room [facility]. I have received report from TOMY Bennett and had the opportunity to ask questions and assume patient care.
[2022-04-01 06:31] VITALS: BP 162/86
[2022-04-01 06:52] LABS: BASOPHILS # (AUTO) 0.1 X10'3 (0-0.2); BASOPHILS % (AUTO) 1.4 % (0-1); EOSINOPHILS # (AUTO) 0.1 X10'3 (0-0.9); EOSINOPHILS % (AUTO) 1.6 % (0-6); HEMATOCRIT 41.7 % (42.0-52.0); HEMOGLOBIN 14.2 g/dl (14.0-17.9); LYMPHOCYTES # (AUTO) 1.1 X10'3 (1.1-4.8); LYMPHOCYTES % (AUTO) 15.4 % (21-51); MEAN CORPUSCULAR HEMOGLOBIN 33.1 PG (27.0-31.0); MEAN CORPUSCULAR HGB CONC 34.2 g/dL (33.0-36.5); MEAN CORPUSCULAR VOLUME 96.9 FL (78-98); MEAN PLATELET VOLUME 7.5 FL (7.4-10.4); MONOCYTES # (AUTO) 0.7 X10'3 (0-0.9); MONOCYTES % (AUTO) 9.7 % (2-12); NEUTROPHILS % (AUTO) 71.9 % (42-75); PLATELET COUNT 427 X10'3 (140-440); RED CELL DISTRIBUTION WIDTH 12.8 % (11.5-14.5)
[2022-04-01] MEDS: CefTRIAXone 2gm/D5W 50ml BAG 50 ML IV SCH (07:14)
[2022-04-01] MEDS: NUT.TX.GLUC.INTOLER,LAC-FR,SOY (GLUCERNA) 237 ML PO SCH (07:30)
[2022-04-01 07:31] LABS: ALANINE AMINOTRANSFERASE 33 U/L (12-78); ALBUMIN 2.5 G/DL (3.4-5.0); ALBUMIN/GLOBULIN RATIO 0.6 (1.1-1.5); ALKALINE PHOSPHATASE 103 IU/L (46-116); ANION GAP 7 (8-16); ASPARTATE AMINO TRANSFERASE 24 U/L (10-37); BILIRUBIN,TOTAL 0.5 MG/DL (0.1-1.0); BLOOD UREA NITROGEN 19 MG/DL (7-18); BUN/CREATININE RATIO 20.7 (5.4-32.0); CALCIUM 9.3 MG/DL (8.5-10.1); CHLORIDE 100 MMOL/L (99-107); CREATININE 0.92 MG/DL (0.60-1.10); GLUCOSE 134 MG/DL (70-104); POTASSIUM 4.2 MMOL/L (3.5-5.1); SODIUM 136 MMOL/L (135-145); TOTAL CARBON DIOXIDE 28.7 MMOL/L (24-32); TOTAL PROTEIN 6.8 G/DL (6.4-8.2); eGFR 83 ML/MIN
[2022-04-01] MEDS: heparin, porcine 5000 units/ml vial SQ SCH (08:00)
[2022-04-01] MEDS: docusate sod 100mg capsule PO SCH (08:00)
[2022-04-01] MEDS: VANCOMYCIN 1,500MG in normal saline IV soln 300 ML IV SCH (09:07)
--- NOTE | 2022-04-01 09:32 | NUR ---
PAGER ID: [phone] MESSAGE: RE: Arnoldo Zamoraa Please call re: patient's discharge today. Has a 4-5h [place] to [place] and would like to leave by noon if at all possible. Yanely Fletcher [phone]
[2022-04-01] MEDS: nicotine 21mg patch - 24 hr TD SCH (09:48)
[2022-04-01] MEDS: NIFEdipine XL 30mg tablet PO SCH (09:49)
[2022-04-01 10:42] VITALS: BP 146/77
[2022-04-01] MEDS ORDERED: HYDR-3972 PO (11:56)
[2022-04-01] MEDS ORDERED: NIFE30TA95 PO (12:52)
[2022-04-01] MEDS ORDERED: METF-900 PO (12:53)
[2022-04-01] MEDS ORDERED: HYDROcodone/acetaminophen 10/325mg tab PO ONE (12:55)
--- NOTE | 2022-04-01 13:00 | NUR ---
I have reviewed and agree with all interventions, assessments performed, and documentation by Chela Rodgers LVN.
--- NOTE | 2022-04-01 13:10 | NUR ---
Patient discharge home with family. Discharge information was review with patient whom verbalize understanding. Patient was assisted to personal vehicle with all belongings.
== END 2022-04-01 13:05 | disposition home or self-care (01) | DRG 344 ==
LOC: SUR 3N 21:39
PROVIDERS: ADMIT Family Medicine; ATTEND Internal Medicine
PROC: 0X9J0ZZ Drainage of Right Hand, Open Approach (ICD-10-PCS; principal; 2022-03-24 15:36)
PROC: 02HV33Z Insertion of Infusion Device into Superior Vena Cava, Percutaneous Approach (ICD-10-PCS; 2022-03-30)
PROC: B548ZZA Ultrasonography of Superior Vena Cava, Guidance (ICD-10-PCS; 2022-03-30)
DX: M00.9 Pyogenic arthritis, unspecified (principal); E87.1 Hypo-osmolality and hyponatremia; L03.113 Cellulitis of right upper limb; E11.65 Type 2 diabetes mellitus with hyperglycemia; E78.5 Hyperlipidemia, unspecified; E87.6 Hypokalemia; F12.90 Cannabis use, unspecified, uncomplicated; Z60.2 Problems related to living alone; F17.200 Nicotine dependence, unspecified, uncomplicated; I10 Essential (primary) hypertension; M19.031 Primary osteoarthritis, right wrist; M10.9 Gout, unspecified; Z88.0 Allergy status to penicillin; Z88.5 Allergy status to narcotic agent; Z79.899 Other long term (current) drug therapy; Z71.6 Tobacco abuse counseling
CPT/HCPCS: 36415; 36569; 71045; 73110; 73120; 76942; 80053; 80202; 82948; 83036; 83605; 84550; 85007; 85025; 85651; 85730; 86140; 87040; 87070; 87075; 87081; 93005; A4615; A4618; A6222; A6258; A6449; A7000; C1751; G0378; J0360; J0692; J0696; J1170; J1644; J1815; J2175; J2704; J3010; J3370; J7030; J7040; J7120; S0020